=== PATIENT | female | born 1975 | race Caucasian/White ===

== ENCOUNTER 2024-02-25 12:08 | Emergency (ER) | payer OTHER ==
[~2024-02-25] VITALS: Ht 165.1 cm; Wt 72.6 kg
[2024-02-25 12:12] VITALS: O2SAT 99
[2024-02-25] MEDS ORDERED: IBUPROFEN 800 MG TABLET ONE (13:03)
[2024-02-25] MEDS: IBUPROFEN 800 MG TABLET PO ONE (13:10)
== END 2024-02-25 13:20 | disposition home or self-care (01) ==
LOC: ER 12:08
DX: R60.0 Localized edema (principal)
CPT/HCPCS: A4606; A4663